=== PATIENT | female | born 1995 | race Caucasian/White ===

== ENCOUNTER 2016-10-23 19:57 | Emergency (ER) | payer OTHER ==
[~2016-10-23] VITALS: Ht 172.7 cm; Wt 61.8 kg
[2016-10-23 20:13] VITALS: BP 145/92
[2016-10-23] MEDS ORDERED: FAMOTIDINE 20 MG TABLET PO ONE (20:30)
[2016-10-23] MEDS ORDERED: FAMOTIDINE 20 MG TABLET ONE (21:00)
== END 2016-10-23 21:45 | disposition home or self-care (01) ==
LOC: ED 21:39
DX: T78.40XA Allergy, unspecified, initial encounter (principal); R21 Rash and other nonspecific skin eruption; X58.XXXA Exposure to other specified factors, initial encounter
CPT/HCPCS: 99284; J7512; Q0177